=== PATIENT | female | born 1990 | race Caucasian/White ===

== ENCOUNTER → 2021-09-18 | Outpatient (CLI) | payer BC ==
[~2021-09-18] MED LIST: ALLEGRA180 MG PO; ATARAX25 MG PO; CLOTRIMAZOLE1% TP; DIFLUCAN150 MG PO; FLONASE0.05 MG/AC NS; LEVAQUIN750 MG PO; LEVOFLOXACIN500 MG PO; SINGULAIR10 MG PO; ZITHROMAX Z PA250 MG PO; ZYRTEC10 M2 PO
[2021-09-18 17:08] LABS: BASO % 0.3 % (0.0-1.0); EOS # 0.1 10*3/uL (0.0-0.4); EOS % 0.8 % (1.0-4.0); HEMATOCRIT 36.7 % (37.0-47.0); LYMPH # 2.2 10*3/uL (1.3-4.4); LYMPH % 22.5 % (27.0-41.0); MEAN CELL VOLUME 87.8 fl (81.0-99.0); MEAN CORPUSCULAR HGB 28.5 pg (27.0-31.0); MEAN CORPUSCULAR HGB CONC 32.4 g/dl (33.0-37.0); MONO # 0.5 10*3/uL (0.1-1.0); MONO % 5.6 % (3.0-9.0); NEUT # 6.8 10*3/uL (2.3-7.9); NEUT % 70.6 % (47.0-73.0); PLATELET COUNT AUTOMATED 307 10*3/uL (130-400); RED BLOOD COUNT 4.18 10*6/uL (4.10-5.10); WHITE BLOOD COUNT 9.6 10*3/uL (4.8-10.8)
[2021-09-18 17:12] LABS: BILIRUBIN Negative (Negative); BLOOD 2+ (Negative); CLARITY Clear (Clear); COLOR Yellow (Yellow); GLUCOSE Negative (Negative); KETONE Negative (Negative); LEUKO ESTERASE Negative (Negative); NITRITE Negative (Negative); SPECIFIC GRAVITY >= 1.030 (1.001-1.030); UROBILINOGEN 0.2 E.U./dl (0.0-1.0)
[2021-09-18 17:26] LABS: ALBUMIN 3.6 gm/dl (3.1-4.5); ALKALINE PHOSPHATASE 63 U/L (45-117); BUN 10 mg/dl (7-24); CHLORIDE 109 mmol/L (98-107); CHOLESTEROL 158 mg/dL (<200); CREATININE 0.85 mg/dL (0.55-1.02); GAMMA GLUTAMYL TRANSPEPTIDASE 12 U/L (5-55); IRON 32 ug/dL (50-170); LDL CHOLESTEROL 83 mg/dL (9-159); POTASSIUM 3.6 mmol/L (3.5-5.1); SGOT/AST 13 IU/L (3-35); SGPT/ALT 20 U/L (12-78); SODIUM 141 mmol/L (136-145); THYROXINE (T4) TOTAL 8.5 ug/dl (4.8-13.9); TOTAL IRON BINDING CAPACITY 348 ug/dl (250-450); TOTAL PROTEIN 7.3 gm/dL (6.4-8.2); TRIGLYCERIDES 78 mg/dl (<150)
[2021-09-18 17:27] LABS: WBC 0-2 wbc/hpf (0-5)
[2021-09-18 17:28] LABS: BACTERIA TRACE; EPITHELIAL CELLS 0-2; MUCOUS TRACE
[2021-09-18 17:34] LABS: B-hCG (QUALITATIVE) NEGATIVE (NEGATIVE); T3 UPTAKE 28 % (31-39)
[2021-09-18 17:35] LABS: BETA-HCG, QUANT < 1.0 mIU/mL (1-3)
[2021-09-18 17:52] LABS: FERRITIN 11.8 ng/mL (10.0-291.0); VITAMIN D, 25-HYDROXY 16.9 ng/mL (30-100)
[2021-09-19 08:07] LABS: FOLLICLE STIMULATING HORMONE 6.3 mIU/mL (.); LUTEINIZING HORMONE 8.1 mIU/mL (.); PROGESTERONE 0.1 ng/mL (.); PROLACTIN 17.8 ng/mL (4.8-23.3)
== END | disposition home or self-care (01) ==
LOC: LAB 16:39
PROVIDERS: ATTEND Family Medicine
DX: E11.9 Type 2 diabetes mellitus without complications (principal); R79.89 Other specified abnormal findings of blood chemistry; R53.83 Other fatigue; R74.8 Abnormal levels of other serum enzymes; E78.5 Hyperlipidemia, unspecified

== ENCOUNTER → 2023-01-14 | Outpatient (CLI) | payer BC ==
[2023-01-14 16:32] LABS: BILIRUBIN Negative (Negative); BLOOD 3+ (Negative); CLARITY Clear (Clear); COLOR Yellow (Yellow); GLUCOSE Negative (Negative); KETONE Negative (Negative); LEUKO ESTERASE Trace (Negative); NITRITE Negative (Negative); PH 5.5 (4.5-8.0); SPECIFIC GRAVITY 1.015 (1.001-1.030); UROBILINOGEN 0.2 E.U./dl (0.0-1.0)
[2023-01-14 16:39] LABS: HEMATOCRIT 33.1 % (37.0-47.0); MEAN CELL VOLUME 78.4 fl (81.0-99.0); MEAN CORPUSCULAR HGB 23.7 pg (27.0-31.0); MEAN CORPUSCULAR HGB CONC 30.2 g/dl (33.0-37.0); MEAN PLATELET VOLUME 10.4 fl (9.6-12.3); PLATELET COUNT AUTOMATED 364 10*3/uL (130-400); RED BLOOD COUNT 4.22 10*6/uL (4.10-5.10); RED CELL DISTRI WIDTH 15.5 % (0-14.5); RETICULOCYTE % 1.15 % (0.50-2.50); WHITE BLOOD COUNT 6.4 10*3/uL (4.8-10.8)
[2023-01-14 16:59] LABS: POTASSIUM 3.7 mmol/L (3.4-5.1); THYROID STIM HORMONE (HS) 1.409 uIU/ml (0.550-4.780); THYROXINE (T4) TOTAL 7.4 ug/dl (4.5-10.9); TOTAL PROTEIN 7.5 gm/dL (6.0-8.0); URIC ACID 4.5 mg/dL (3.1-7.8)
[2023-01-14 17:04] LABS: MICROCYTOSIS SLIGHT; PLATELET SUFFICIENCY NORMAL (NORMAL); TOTAL CELLS COUNTED 100 #CELLS
[2023-01-14 17:08] LABS: BACTERIA 1+; RBC 31-40 rbc/hpf (0-2)
[2023-01-14 17:47] LABS: VITAMIN D, 25-HYDROXY 23.9 ng/mL (30-100)
[2023-01-15 14:08] LABS: ALBUMIN 3.5 g/dL (2.9-4.4); ALPHA-1-GLOBULIN 0.3 g/dL (0.0-0.4); ALPHA-2-GLOBULIN 0.9 g/dL (0.4-1.0); ANTI-DSDNA ANTIBODIES <1 IU/mL (0-9); GAMMA GLOBULIN 1.2 g/dL (0.4-1.8); GLOBULIN, TOTAL 3.5 g/dL (2.2-3.9); M-SPIKE Not Observed g/dL (Not Observed)
== END ==
LOC: LAB 15:55
PROVIDERS: ATTEND Family Medicine
DX: R53.83 Other fatigue (principal); E78.5 Hyperlipidemia, unspecified; R79.89 Other specified abnormal findings of blood chemistry; E55.9 Vitamin D deficiency, unspecified; R74.8 Abnormal levels of other serum enzymes